=== PATIENT | male | born 1965 | race Hispanic/Latino ===

== ENCOUNTER 2020-11-24 13:02 | Observation (INO) | payer OTHER ==
[~2020-11-24] VITALS: Ht 162.6 cm; Wt 85.5 kg
[2020-11-24 13:04] VITALS: BP 97/58
[2020-11-24] MEDS ORDERED: 0.9%NACL 1000ML 1,000 ML IV SCH (17:15)
[2020-11-24] MEDS ORDERED: LABE200T5 PO (18:05)
[2020-11-24] MEDS ORDERED: CLOP75TA32 PO (18:06)
[2020-11-24] MEDS ORDERED: LORA-192 PO (18:07)
[2020-11-24] MEDS ORDERED: ATOR40TA69 PO (18:08)
[2020-11-24] MEDS ORDERED: ISOS60TA77 PO (18:08)
[2020-11-24] MEDS ORDERED: MONT10TA32 PO (18:09)
[2020-11-24] MEDS ORDERED: GABA300C PO (18:10)
[2020-11-24] MEDS ORDERED: MELA1TAB28 PO (18:10)
[2020-11-24] MEDS ORDERED: ASHW300C PO (18:11)
[2020-11-24 18:39] VITALS: BP 97/60
[2020-11-24 19:46] VITALS: BP 120/69
[2020-11-24 20:54] VITALS: BP 136/71
[2020-11-24 23:49] VITALS: BP 119/77
[2020-11-25] VITALS (12 sets, daily range): BP systolic 110–168; BP diastolic 73–83
[2020-11-25 06:36] LABS: CARBON DIOXIDE 29 mmol/L (21-32); CHLORIDE 108 mmol/L (101-111); CREATINE KINASE, TOTAL 95 U/L (21-232); CREATININE 3.7 mg/dL (0.5-1.5); GLOMERULAR FILTR. RATE CALC 18 mL/min (>60); GLUCOSE,RANDOM 104 mg/dL (70-105); MYOGLOBIN 128 ng/mL (10-92); POTASSIUM 4.7 mmol/L (3.5-5.1); SODIUM SERUM 143 mmol/L (136-145); TROPONIN I < 0.04 ng/mL (0.00-0.06); UREA NITROGEN, BLOOD 48 mg/dL (7-18)
[2020-11-25 06:43] LABS: BASOPHILS % (AUTO) 1.1 % (0.0-5.0); EOSINOPHILS % (AUTO) 5.3 % (0.0-8.0); HEMATOCRIT 28.1 % (42-54); LYMPHOCYTES % (AUTO) 20.5 % (21.0-51.0); MEAN CORPUSCULAR HEMOGLOBIN 29.6 pg (27.0-33.0); MEAN CORPUSCULAR HGB CONC 32.4 g/dL (32.0-36.0); MEAN CORPUSCULAR VOLUME 91.5 fL (79-99); MONOCYTES % (AUTO) 8.2 % (3.0-13.0); NEUTROPHILS % (AUTO) 64.6 % (40.0-77.0); PLATELET COUNT (AUTO) 218 K/uL (130-400); RED BLOOD CELL COUNT(AUTO) 3.07 MIL/uL (4.50-6.20); RED CELL DISTRIBUTION WIDTH 12.6 % (11.0-15.5); WHITE BLOOD COUNT (AUTO) 6.6 K/uL (4.8-10.8)
[2020-11-25 06:48] LABS: INR 1.12 (0.85-1.15); PARTIAL THROMBOPLASTIN TIME 27.5 SEC (26.3-35.5); PROTHROMBIN TIME 12.1 SEC (9.6-11.6)
[2020-11-25] MEDS ORDERED: HEPARIN 10,000 UNIT/10ML (1,000 UNIT/ML) VIAL ONE (15:47)
[2020-11-25] MEDS ORDERED: NITROGLYCERIN 2 MG VIAL IV ONE (15:47)
[2020-11-25] MEDS ORDERED: SODIUM BICARB 50MEQ 50ML VIAL 50 ML ONE (15:47)
[2020-11-25] MEDS ORDERED: IOHEXOL 350 MG/ML 100ML INFUS..BTL IV ONE (15:48)
[2020-11-25] MEDS ORDERED: IOHEXOL-350 50ML VIAL IV ONE (15:48)
[2020-11-25] MEDS ORDERED: LIDOCAINE HCL 400MG/20ML VIAL ONE (15:49)
[2020-11-25] MEDS ORDERED: MEPERIDINE-PF 25 MG/ML SYG ONE (15:49)
[2020-11-25] MEDS ORDERED: MIDAZOLAM HCL 1 MG/ML 2ML VIAL ONE (15:49)
[2020-11-25] MEDS ORDERED: HYDRALAZINE 20MG/ML VIAL ONE (17:08)
[2020-11-25] MEDS ORDERED: 0.9%NACL 1000ML 1,000 ML IV SCH (17:30)
[2020-11-25] MEDS ORDERED: LORAZEPAM 1 MG TABLET PO PRN (17:30)
[2020-11-25] MEDS: LABETALOL HCL 200 MG TABLET PO SCH (20:33)
[2020-11-25] MEDS ORDERED: MELATONIN PO SCH (21:00)
[2020-11-25] MEDS ORDERED: MONTELUKAST SODIUM 10 MG TAB PO SCH (21:00)
[2020-11-25] MEDS ORDERED: PYRIDOXINE HCL PO SCH (21:00)
[2020-11-26] VITALS: BP 139/72
[2020-11-26 04:00] VITALS: BP 187/92
[2020-11-26 05:14] VITALS: BP 159/85
[2020-11-26 05:42] LABS: HEMATOCRIT 30.8 % (42-54); MEAN CORPUSCULAR HEMOGLOBIN 29.6 pg (27.0-33.0); MEAN CORPUSCULAR HGB CONC 32.1 g/dL (32.0-36.0); MEAN CORPUSCULAR VOLUME 92.2 fL (79-99); RED BLOOD CELL COUNT(AUTO) 3.34 MIL/uL (4.50-6.20); RED CELL DISTRIBUTION WIDTH 12.7 % (11.0-15.5)
[2020-11-26 05:57] LABS: CREATININE 3.2 mg/dL (0.5-1.5); POTASSIUM 4.4 mmol/L (3.5-5.1)
[2020-11-26 07:32] VITALS: BP 162/75
[2020-11-26] MEDS: LABETALOL HCL 200 MG TABLET PO SCH (08:07)
[2020-11-26] MEDS ORDERED: CLOPIDOGREL 75MG TAB PO SCH (09:00)
[2020-11-26] MEDS ORDERED: ATORVASTATIN 40 MG TABLET PO SCH (09:00)
[2020-11-26] MEDS ORDERED: ASHWAGANDHA ROOT EXTRACT 300 MG PO SCH (09:00)
[2020-11-26] MEDS ORDERED: ISOSORBIDE MONO 60MG SR TAB PO SCH (09:00)
[2020-11-26] MEDS ORDERED: GABAPENTIN 300 MG CAPSULE PO SCH (09:00)
[2020-11-26] MEDS ORDERED: RANO500T2 PO (11:11)
== END 2020-11-26 11:47 | disposition home or self-care (01) ==
LOC: EDH 13:02 → EDHIP 13:03 → 4BH 20:51
PROVIDERS: ADMIT Internal Medicine Cardiovascular Disease; ATTEND Internal Medicine Cardiovascular Disease
DX: I25.110 Atherosclerotic heart disease of native coronary artery with unstable angina pectoris (principal); N17.9 Acute kidney failure, unspecified; I12.9 Hypertensive chronic kidney disease with stage 1 through stage 4 chronic kidney disease, or unspecified chronic kidney disease; N18.9 Chronic kidney disease, unspecified; E11.22 Type 2 diabetes mellitus with diabetic chronic kidney disease
CPT/HCPCS: 36415 ×2; 80048 ×2; 82550; 82948 ×2; 83874; 84484; 85025; 85027; 85610; 85730; 93005; 93458; 96360; 96361; 99284; C1760; C1894; G0378 ×44; J0360; J1644; J2175; J2250; J3490 ×3; J7030; Q9965; Q9967 ×2; 99156; 99157

== ENCOUNTER → 2020-12-16 | Outpatient (CLI) | payer OTHER ==
[~2020-12-16] MED LIST: ASHW300C PO; ATOR40TA69 PO; CLOP75TA32 PO; GABA300C PO; ISOS60TA77 PO; LABE200T5 PO; LORA-192 PO; MELA1TAB28 PO; MONT10TA32 PO; RANO500T2 PO
== END | disposition home or self-care (01) ==
LOC: SHCH 10:41
PROVIDERS: ATTEND Internal Medicine Cardiovascular Disease
DX: I70.293 Other atherosclerosis of native arteries of extremities, bilateral legs (principal)
CPT/HCPCS: 93925

== ENCOUNTER 2021-04-06 06:22 | Inpatient (IN) | payer OTHER ==
[2021-04-02 10:30] LABS: BASOPHILS % (AUTO) 0.9 % (0.0-5.0); EOSINOPHILS % (AUTO) 5.1 % (0.0-8.0); HEMATOCRIT 42.6 % (42-54); LYMPHOCYTES % (AUTO) 14.6 % (21.0-51.0); MEAN CORPUSCULAR HEMOGLOBIN 30.3 pg (27.0-33.0); MEAN CORPUSCULAR VOLUME 97.7 fL (79-99); MONOCYTES % (AUTO) 8.3 % (3.0-13.0); NEUTROPHILS % (AUTO) 70.6 % (40.0-77.0); PLATELET COUNT (AUTO) 269 K/uL (130-400); RED BLOOD CELL COUNT(AUTO) 4.36 MIL/uL (4.50-6.20); RED CELL DISTRIBUTION WIDTH 16.2 % (11.0-15.5); WHITE BLOOD COUNT (AUTO) 6.5 K/uL (4.8-10.8)
[2021-04-02 10:38] LABS: APPEARANCE,URINE Cloudy (CLEAR); BILIRUBIN,URINE Negative (NEGATIVE); COLOR,URINE Yellow (YELLOW); GLUCOSE, URINE (UA) 500 mg/dL (NEGATIVE); KETONES,URINE Trace mg/dL (NEGATIVE); LEUKOCYTE ESTERASE ,URINE Trace (NEGATIVE); NITRATE,URINE Negative (NEGATIVE); OCCULT BLOOD,URINE Small (NEGATIVE); PROTEIN,URINE >=1000 mg/dL (NEGATIVE)
[2021-04-02 10:41] LABS: CREATININE 3.9 mg/dL (0.5-1.5); INR 1.09 (0.85-1.15); POTASSIUM 4.4 mmol/L (3.5-5.1); PROTHROMBIN TIME 11.8 SEC (9.6-11.6)
[2021-04-02 10:43] LABS: PARTIAL THROMBOPLASTIN TIME 29.2 SEC (26.3-35.5)
[2021-04-02 10:56] LABS: BACTERIA,URINE Rare /HPF (None Seen); RBC,URINE 0-1 /HPF (0-1); SQUAMOUS EPITHELIAL CELL,UR Rare /HPF (0-2); WBC,URINE 0-1 /HPF (0-1)
[2021-04-03 13:11] VITALS: BP 180/79
[2021-04-06] VITALS (31 sets, daily range): BP systolic 131–188; BP diastolic 69–97
[~2021-04-06] VITALS: Ht 162.6 cm; Wt 80.6 kg
[~2021-04-06 06:22] MED LIST changes: +0.9% NACL 500ML IV.SOLN 500 ML IV SCH; +CITA-107 PO; +INSU100I35 SQ; +MONT-39 PO; -MONT10TA32 PO
[2021-04-06] MEDS ORDERED: 0.9%NACL 1000ML 1,000 ML IV ONE (06:36)
[2021-04-06] MEDS ORDERED: SODIUM BICARB 50MEQ 50ML VIAL 50 ML ONE (07:56)
[2021-04-06] MEDS ORDERED: LIDOCAINE HCL 400MG/20ML VIAL ONE (07:56)
[2021-04-06] MEDS ORDERED: IOHEXOL 350 MG/ML 100ML INFUS..BTL IV ONE (07:56)
[2021-04-06] MEDS ORDERED: HEPARIN 10,000 UNIT/10ML (1,000 UNIT/ML) VIAL ONE (07:56)
[2021-04-06] MEDS ORDERED: NITROGLYCERIN 50MG VIAL IV ONE (07:56)
[2021-04-06] MEDS ORDERED: IOHEXOL-350 50ML VIAL IV ONE (07:56)
[2021-04-06] MEDS ORDERED: BIVALIRUDIN 250 MG/VIAL IV ONE (07:56)
[2021-04-06] MEDS ORDERED: MEPERIDINE-PF 25 MG/ML SYG ONE ×2 (08:15→08:41)
[2021-04-06] MEDS ORDERED: MIDAZOLAM HCL 1 MG/ML 2ML VIAL ONE ×2 (08:15→08:42)
[2021-04-06] MEDS ORDERED: MELA3TAB41 PO (08:51)
[2021-04-06] MEDS ORDERED: LORA-192 PO (08:52)
[2021-04-06] MEDS ORDERED: CITALOPRAM 20 MG TABLET PO SCH (14:00)
[2021-04-06 14:41] LABS: MEAN CORPUSCULAR HEMOGLOBIN 30.1 pg (27.0-33.0); MEAN CORPUSCULAR HGB CONC 30.5 g/dL (32.0-36.0); MEAN CORPUSCULAR VOLUME 98.4 fL (79-99); RED BLOOD CELL COUNT(AUTO) 3.86 MIL/uL (4.50-6.20); RED CELL DISTRIBUTION WIDTH 15.9 % (11.0-15.5)
[2021-04-06 14:53] LABS: INR 1.1 (0.85-1.15); PROTHROMBIN TIME 11.9 SEC (9.6-11.6)
[2021-04-06 14:54] LABS: PARTIAL THROMBOPLASTIN TIME 30.4 SEC (26.3-35.5)
[2021-04-06 14:56] LABS: ALBUMIN 2.8 g/dL (3.5-5.0); BILIRUBIN,TOTAL 0.4 mg/dL (0.2-1.0); CREATININE 5.6 mg/dL (0.5-1.5); POTASSIUM 4.7 mmol/L (3.5-5.1); TOTAL PROTEIN, SERUM 5.7 g/dL (6.0-8.3)
[2021-04-06 15:04] LABS: ABG BASE EXCESS -4.8 mmol/L (-2.0-3.0); ABG HCO3 19.5 mmol/L (21.0-28.0); ABG OXYGEN SATURATION 98.1 % (95.0-99.0); ABG PCO2 34 mmHg (35-48)
[2021-04-06] MEDS ORDERED: HEPARIN 5,000 UNIT VIAL ONE (18:15)
[2021-04-06] MEDS: INSULIN HUMULIN 70/30 100 UNIT/ML 3ML SQ SCH (19:37)
[2021-04-06] MEDS: RANOLAZINE 500 MG TAB.SR.12H PO SCH (20:43)
[2021-04-06] MEDS: MONTELUKAST SODIUM 10 MG TAB PO SCH (20:43)
[2021-04-06] MEDS: LABETALOL HCL 200 MG TABLET PO SCH (20:44)
[2021-04-07] VITALS (30 sets, daily range): BP systolic 59–234; BP diastolic 44–148
[2021-04-07 04:03] LABS: BASOPHILS % (AUTO) 0.7 % (0.0-5.0); EOSINOPHILS % (AUTO) 4.1 % (0.0-8.0); HEMATOCRIT 38.5 % (42-54); LYMPHOCYTES % (AUTO) 16.7 % (21.0-51.0); MEAN CORPUSCULAR HEMOGLOBIN 29.9 pg (27.0-33.0); MEAN CORPUSCULAR HGB CONC 31.4 g/dL (32.0-36.0); MEAN CORPUSCULAR VOLUME 95.1 fL (79-99); MONOCYTES % (AUTO) 9.5 % (3.0-13.0); NEUTROPHILS % (AUTO) 68.7 % (40.0-77.0); PLATELET COUNT (AUTO) 183 K/uL (130-400); RED BLOOD CELL COUNT(AUTO) 4.05 MIL/uL (4.50-6.20); RED CELL DISTRIBUTION WIDTH 15.4 % (11.0-15.5); WHITE BLOOD COUNT (AUTO) 6.1 K/uL (4.8-10.8)
[2021-04-07 04:12] LABS: INR 1.08 (0.85-1.15); PROTHROMBIN TIME 11.7 SEC (9.6-11.6)
[2021-04-07 04:13] LABS: PARTIAL THROMBOPLASTIN TIME 30.8 SEC (26.3-35.5)
[2021-04-07 04:15] LABS: CREATININE 4.4 mg/dL (0.5-1.5); PHOSPHORUS 3.8 mg/dL (2.5-4.9); POTASSIUM 3.8 mmol/L (3.5-5.1)
[2021-04-07] MEDS: LABETALOL HCL 200 MG TABLET PO SCH (05:18)
[2021-04-07] MEDS: RANOLAZINE 500 MG TAB.SR.12H PO SCH (09:00)
[2021-04-07] MEDS: ATORVASTATIN 40 MG TABLET PO SCH (09:00)
[2021-04-07] MEDS: INSULIN HUMULIN 70/30 100 UNIT/ML 3ML SQ SCH (09:00)
[2021-04-07] MEDS: GABAPENTIN 300 MG CAPSULE PO SCH (09:00)
[2021-04-07] MEDS ORDERED: NOREPINEPHRINE BITARTRATE 8 MG in DEXTROSE 5%-WATER 250 ML IV PRN (09:30)
[2021-04-07] MEDS ORDERED: EPINEPHRINE PF 1MG AMP 10 MG in 0.9% NACL 250ML 240 ML IV PRN (09:30)
[2021-04-07] MEDS ORDERED: AMINOCAPROIC ACID 5,000MG VIAL 15,000 MG in 0.9% NACL 500ML IV.SOLN 420 ML IV PRN (09:30)
[2021-04-07] MEDS ORDERED: NITROGLYCERIN 50MG/D5W 250ML 1 BOT ONE (10:31)
[2021-04-07] MEDS ORDERED: LIDOCAINE PF 100MG/5ML (2%) SYRINGE 5ML ONE (10:35)
[2021-04-07] MEDS ORDERED: AMINOCAPROIC ACID 5,000MG VIAL ONE (10:35)
[2021-04-07] MEDS ORDERED: NOREPINEPHRINE BITARTRATE 1 MG/1 ML ML IV ONE (10:35)
[2021-04-07] MEDS ORDERED: EPINEPHRINE PF 1MG AMP ONE (10:35)
[2021-04-07] MEDS ORDERED: PROTAMINE SULFATE 10 MG/ML 25ML VIAL IV ONE (10:35)
[2021-04-07] MEDS ORDERED: PROPOFOL 10 MG/ML 20ML VIAL IV ONE (10:35)
[2021-04-07] MEDS ORDERED: FENTANYL CITRATE PF 50 MCG/1 ML 20ML VIAL IJ ONE (10:35)
[2021-04-07] MEDS ORDERED: SODIUM BICARB 50MEQ 50ML VIAL 100 ML ONE (10:35)
[2021-04-07] MEDS ORDERED: HEPARIN 10,000 UNIT/10ML (1,000 UNIT/ML) VIAL ONE (10:35)
[2021-04-07] MEDS ORDERED: ESMOLOL HCL 10 MG/ML 10 ML VIAL ONE (10:35)
[2021-04-07] MEDS ORDERED: ROCURONIUM 10MG/1ML SYR 10 MG/ML ML ONE (10:36)
[2021-04-07] MEDS ORDERED: MIDAZOLAM HCL 1 MG/ML 2ML VIAL ONE (10:36)
[2021-04-07] MEDS ORDERED: KETAMINE 50MG/ML SYRINGE 50 MG/ML DISP.SYRIN IV ONE ×2 (10:38→14:36)
[2021-04-07] MEDS ORDERED: 0.9%NACL 1000ML 1,000 ML IV ONE (10:42)
[2021-04-07] MEDS ORDERED: CEFUROXIME SODIUM 1.5 GM VIAL ONE (10:51)
[2021-04-07] MEDS ORDERED: CEFAZOLIN SODIUM 1 GM VIAL ONE ×2 (12:09→12:17)
[2021-04-07] MEDS ORDERED: PAPAVERINE HCL 30 MG/ML 2ML VIAL ONE (12:17)
[2021-04-07] MEDS ORDERED: OCTYL 2-CYANOACRYLATE 1 EACH TP ONE (12:17)
[2021-04-07] MEDS ORDERED: AMIODARONE 150MG VIAL ONE (13:19)
[2021-04-07 14:38] LABS: ABG BASE EXCESS -5.9 mmol/L (-2.0-3.0); ABG HCO3 18.1 mmol/L (21.0-28.0); ABG OXYGEN SATURATION 99.6 % (95.0-99.0); ABG PCO2 31 mmHg (35-48)
[2021-04-07] MEDS ORDERED: 0.9% NACL 500ML IV.SOLN 500 ML IV SCH (15:00)
[2021-04-07] MEDS ORDERED: 0.9%NACL 1000ML 1,000 ML IV SCH (15:00)
[2021-04-07] MEDS ORDERED: MORPHINE 2 MG SYG IV PRN ×2 (15:00)
[2021-04-07] MEDS ORDERED: ACETAMINOPHEN 650 MG SUPPOSITORY RC PRN (15:00)
[2021-04-07] MEDS ORDERED: INSULIN REGULAR, HUMAN 3ML 100 UNIT in 0.9%NACL 100ML 99 ML IV SCH ×2 (15:00)
[2021-04-07] MEDS ORDERED: ALBUMIN (HUMAN) 5% 250 ML IV PRN (15:00)
[2021-04-07] MEDS ORDERED: TRAMADOL HCL 50 MG TABLET PO PRN (15:00)
[2021-04-07] MEDS ORDERED: ASPIRIN 81MG CHEW TAB PO ONE (15:00)
[2021-04-07] MEDS ORDERED: AMINOCAPROIC ACID 5,000MG VIAL 15,000 MG in 0.9% NACL 250ML 250 ML IV SCH (15:00)
[2021-04-07] MEDS ORDERED: DEXTROSE 50%-WATER 50 ML DISP.SYRIN IV PRN (15:00)
[2021-04-07] MEDS ORDERED: ONDANSETRON 4MG INJ IV PRN (15:00)
[2021-04-07] MEDS ORDERED: NOREPINEPHRIN 4MG/NS 250ML 250 ML IV PRN (15:00)
[2021-04-07] MEDS ORDERED: 0.9%NACL 10ML VIAL IVP PRN (15:00)
[2021-04-07] MEDS ORDERED: POTASSIUM PHOS 15 mMOL+NS250ML 250 ML IV PRN (15:00)
[2021-04-07] MEDS ORDERED: GLUCAGON 1MG KIT 1 MG ML IM PRN (15:00)
[2021-04-07] MEDS ORDERED: MAGNESIUM 2GM PREMIX 50ML 50 ML IV PRN (15:00)
[2021-04-07] MEDS ORDERED: POTASSIUM CHLORIDE 20MEQ/100ML 100 ML IV PRN (15:00)
[2021-04-07] MEDS ORDERED: EPINEPHRINE PF 1MG AMP 10 MG in DEXTROSE 5%-WATER 250 ML IV PRN (15:00)
[2021-04-07] MEDS ORDERED: NITROGLYCERIN 50MG/D5W 250ML 250 BOT IV SCH (15:00)
[2021-04-07] MEDS ORDERED: PROPOFOL 1000 MG/100 ML 100 ML IV PRN (15:00)
[2021-04-07 15:34] LABS: HEMATOCRIT 34.4 % (42-54); MEAN CORPUSCULAR HGB CONC 32.8 g/dL (32.0-36.0); MEAN CORPUSCULAR VOLUME 94.5 fL (79-99); RED BLOOD CELL COUNT(AUTO) 3.64 MIL/uL (4.50-6.20); RED CELL DISTRIBUTION WIDTH 15.4 % (11.0-15.5); WHITE BLOOD COUNT (AUTO) 15.5 K/uL (4.8-10.8)
[2021-04-07 15:47] LABS: INR 1.35 (0.85-1.15); PROTHROMBIN TIME 14.3 SEC (9.6-11.6)
[2021-04-07 15:49] LABS: CREATININE 4.8 mg/dL (0.5-1.5); MAGNESIUM 1.7 mg/dL (1.80-2.40); PARTIAL THROMBOPLASTIN TIME 29.6 SEC (26.3-35.5); PHOSPHORUS 4.9 mg/dL (2.5-4.9); POTASSIUM 5.7 mmol/L (3.5-5.1)
[2021-04-07 15:51] LABS: ABG BASE EXCESS -1.7 mmol/L (-2.0-3.0); ABG HCO3 22.5 mmol/L (21.0-28.0); ABG OXYGEN SATURATION 98.9 % (95.0-99.0); ABG PCO2 36 mmHg (35-48)
[2021-04-07] MEDS: SODIUM BICARB 50MEQ 50ML VIAL IV PRN ×2 (15:57→17:10)
[2021-04-07 17:07] LABS: ABG BASE EXCESS -3.3 mmol/L (-2.0-3.0); ABG HCO3 19.2 mmol/L (21.0-28.0); ABG OXYGEN SATURATION 98.9 % (95.0-99.0); ABG PCO2 27 mmHg (35-48)
[2021-04-07] MEDS ORDERED: ASPIRIN 81MG CHEW TAB ONE (17:24)
[2021-04-07] MEDS: FAMOTIDINE 20MG VIAL IV SCH (17:26)
[2021-04-07 18:04] LABS: ABG BASE EXCESS 1.9 mmol/L (-2.0-3.0); ABG HCO3 23.6 mmol/L (21.0-28.0); ABG OXYGEN SATURATION 98.6 % (95.0-99.0); ABG PCO2 28 mmHg (35-48)
[2021-04-07] MEDS ORDERED: CALCIUM GLUC 1GM/10ML VIAL ONE (18:09)
[2021-04-07] MEDS: CALCIUM GLUC 1GM 1 GM in 0.9%NACL 50ML 50 ML IV PRN ×3 (18:11→22:24)
[2021-04-07] MEDS ORDERED: NOREPINEPHRIN 8MG/250ML NS PMX 250 ML IV ONE (19:03)
[2021-04-07 19:06] LABS: ABG BASE EXCESS 1.5 mmol/L (-2.0-3.0); ABG HCO3 23.4 mmol/L (21.0-28.0); ABG OXYGEN SATURATION 98.2 % (95.0-99.0); ABG PCO2 28 mmHg (35-48)
[2021-04-07] MEDS ORDERED: ALBUMIN (HUMAN) 5% 250 ML IV ONE (20:13)
[2021-04-07 20:28] LABS: ABG BASE EXCESS -1.6 mmol/L (-2.0-3.0); ABG HCO3 24.4 mmol/L (21.0-28.0); ABG OXYGEN SATURATION 97.6 % (95.0-99.0); ABG PCO2 47 mmHg (35-48)
[2021-04-07] MEDS: CEFAZOLIN SODIUM 1 GM VIAL IV SCH (20:58)
[2021-04-07] MEDS: MONTELUKAST SODIUM 10 MG TAB PO SCH (21:00)
[2021-04-07] MEDS: TRAMADOL HCL 50 MG TABLET PO PRN (21:46)
[2021-04-07 22:22] LABS: ABG BASE EXCESS 0.6 mmol/L (-2.0-3.0); ABG HCO3 26.8 mmol/L (21.0-28.0); ABG OXYGEN SATURATION 97.9 % (95.0-99.0); ABG PCO2 52 mmHg (35-48)
[2021-04-08] VITALS (35 sets, daily range): BP systolic 78–253; BP diastolic 42–252
[2021-04-08] MEDS: TRAMADOL HCL 50 MG TABLET PO PRN (03:16)
[2021-04-08] MEDS: CEFAZOLIN SODIUM 1 GM VIAL IV SCH ×2 (03:46→12:00)
[2021-04-08 04:01] LABS: ABG BASE EXCESS -4.5 mmol/L (-2.0-3.0); ABG HCO3 22.2 mmol/L (21.0-28.0); ABG PCO2 46 mmHg (35-48)
[2021-04-08 04:25] LABS: HEMATOCRIT 26.7 % (42-54); MEAN CORPUSCULAR HEMOGLOBIN 30.1 pg (27.0-33.0); MEAN CORPUSCULAR HGB CONC 31.1 g/dL (32.0-36.0); MEAN CORPUSCULAR VOLUME 96.7 fL (79-99); RED BLOOD CELL COUNT(AUTO) 2.76 MIL/uL (4.50-6.20); RED CELL DISTRIBUTION WIDTH 15.6 % (11.0-15.5)
[2021-04-08] MEDS: SODIUM BICARB 50MEQ 50ML VIAL IV PRN (04:27)
[2021-04-08 04:42] LABS: INR 1.22 (0.85-1.15); PROTHROMBIN TIME 13.1 SEC (9.6-11.6)
[2021-04-08 04:43] LABS: PARTIAL THROMBOPLASTIN TIME 27.9 SEC (26.3-35.5)
[2021-04-08 04:57] LABS: CREATININE 6.5 mg/dL (0.5-1.5); MAGNESIUM 1.8 mg/dL (1.80-2.40); PHOSPHORUS 7.3 mg/dL (2.5-4.9); POTASSIUM 5.2 mmol/L (3.5-5.1)
[2021-04-08 07:16] LABS: HEPATITIS Bs ANTIGEN SCREEN P Negative (Negative)
[2021-04-08] MEDS: GABAPENTIN 300 MG CAPSULE PO SCH (08:56)
[2021-04-08] MEDS: ASPIRIN 81 MG EC TAB PO SCH (08:56)
[2021-04-08] MEDS: FAMOTIDINE 20MG VIAL IV SCH (08:56)
[2021-04-08] MEDS: METOPROLOL TARTRATE 25 MG TAB PO SCH ×2 (08:56→20:42)
[2021-04-08] MEDS: ATORVASTATIN 40 MG TABLET PO SCH (09:00)
[2021-04-08] MEDS ORDERED: HEPARIN 5,000 UNIT VIAL ONE (13:40)
[2021-04-08] MEDS ORDERED: IOHEXOL-350 75 ML VIAL IV ONE (17:46)
[2021-04-08] MEDS: MONTELUKAST SODIUM 10 MG TAB PO SCH (20:42)
[2021-04-09] VITALS (40 sets, daily range): BP systolic 93–197; BP diastolic 48–192
[2021-04-09 04:17] LABS: HEMATOCRIT 23.7 % (42-54); MEAN CORPUSCULAR HGB CONC 31.6 g/dL (32.0-36.0); MEAN CORPUSCULAR VOLUME 97.9 fL (79-99); RED BLOOD CELL COUNT(AUTO) 2.42 MIL/uL (4.50-6.20); RED CELL DISTRIBUTION WIDTH 15.4 % (11.0-15.5); WHITE BLOOD COUNT (AUTO) 9.3 K/uL (4.8-10.8)
[2021-04-09 04:28] LABS: POTASSIUM 5.3 mmol/L (3.5-5.1)
[2021-04-09] MEDS: METOPROLOL TARTRATE 25 MG TAB PO SCH ×2 (07:54→22:40)
[2021-04-09] MEDS: ATORVASTATIN 40 MG TABLET PO SCH (08:15)
[2021-04-09] MEDS: GABAPENTIN 300 MG CAPSULE PO SCH (08:15)
[2021-04-09] MEDS: ASPIRIN 81 MG EC TAB PO SCH (08:15)
[2021-04-09] MEDS: FAMOTIDINE 20MG VIAL IV SCH (08:15)
[2021-04-09] MEDS ORDERED: METOPROLOL TARTRATE 25 MG TAB PO SCH ×2 (09:00)
[2021-04-09] MEDS: KAYEXALATE 15GM/60ML PO SCH (09:44)
[2021-04-09] MEDS: INSULIN HUMULIN R 100 UNIT/ML 3ML SQ SCH ×3 (11:32→22:41)
[2021-04-09] MEDS: MONTELUKAST SODIUM 10 MG TAB PO SCH (22:40)
[2021-04-10] VITALS (40 sets, daily range): BP systolic 73–182; BP diastolic 52–99
[2021-04-10 04:13] LABS: HEMATOCRIT 25.4 % (42-54); MEAN CORPUSCULAR HEMOGLOBIN 29.6 pg (27.0-33.0); MEAN CORPUSCULAR HGB CONC 29.5 g/dL (32.0-36.0); MEAN CORPUSCULAR VOLUME 100.4 fL (79-99); PLATELET COUNT (AUTO) 170 K/uL (130-400); RED BLOOD CELL COUNT(AUTO) 2.53 MIL/uL (4.50-6.20); RED CELL DISTRIBUTION WIDTH 15.4 % (11.0-15.5); WHITE BLOOD COUNT (AUTO) 8.6 K/uL (4.8-10.8)
[2021-04-10 04:29] LABS: CREATININE 7.7 mg/dL (0.5-1.5)
[2021-04-10] MEDS: INSULIN HUMULIN R 100 UNIT/ML 3ML SQ SCH ×4 (07:05→20:00)
[2021-04-10] MEDS: ACETAMINOPHEN 325 MG TAB PO PRN ×2 (07:06→19:50)
[2021-04-10] MEDS: KAYEXALATE 15GM/60ML PO SCH (07:08)
[2021-04-10] MEDS: FAMOTIDINE 20MG VIAL IV SCH (08:07)
[2021-04-10] MEDS: ATORVASTATIN 40 MG TABLET PO SCH (08:07)
[2021-04-10] MEDS: ASPIRIN 81 MG EC TAB PO SCH (08:07)
[2021-04-10] MEDS: HEPARIN 5,000 UNIT VIAL SQ SCH ×2 (08:09→20:02)
[2021-04-10] MEDS: METOPROLOL TARTRATE 25 MG TAB PO SCH ×2 (08:15→20:01)
[2021-04-10] MEDS: PHARMACY COMMUNICATION MISC SCH ×2 (08:30→11:14)
[2021-04-10] MEDS: MELATONIN 10 MG MISC SCH (20:01)
[2021-04-10] MEDS: MONTELUKAST SODIUM 10 MG TAB PO SCH (20:01)
[2021-04-10] MEDS: GUMMY MISC SCH (20:01)
[2021-04-11] VITALS (10 sets, daily range): BP systolic 124–168; BP diastolic 48–88
[2021-04-11 04:08] LABS: HEMATOCRIT 25.5 % (42-54); MEAN CORPUSCULAR HEMOGLOBIN 29.2 pg (27.0-33.0); MEAN CORPUSCULAR HGB CONC 31.8 g/dL (32.0-36.0); MEAN CORPUSCULAR VOLUME 92.1 fL (79-99); RED BLOOD CELL COUNT(AUTO) 2.77 MIL/uL (4.50-6.20); RED CELL DISTRIBUTION WIDTH 15.7 % (11.0-15.5); WHITE BLOOD COUNT (AUTO) 6.9 K/uL (4.8-10.8)
[2021-04-11 04:18] LABS: CREATININE 5.1 mg/dL (0.5-1.5); POTASSIUM 3.2 mmol/L (3.5-5.1)
[2021-04-11] MEDS: ACETAMINOPHEN 325 MG TAB PO PRN ×3 (04:30→23:19)
[2021-04-11] MEDS: INSULIN HUMULIN R 100 UNIT/ML 3ML SQ SCH ×4 (06:20→21:20)
[2021-04-11] MEDS: ASPIRIN 81 MG EC TAB PO SCH (08:14)
[2021-04-11] MEDS: METOPROLOL TARTRATE 25 MG TAB PO SCH ×2 (08:14→21:16)
[2021-04-11] MEDS: ATORVASTATIN 40 MG TABLET PO SCH (08:14)
[2021-04-11] MEDS: FAMOTIDINE 20MG TAB PO SCH (08:14)
[2021-04-11] MEDS: HEPARIN 5,000 UNIT VIAL SQ SCH ×2 (08:15→21:16)
[2021-04-11] MEDS: KAYEXALATE 15GM/60ML PO SCH (09:30)
[2021-04-11] MEDS ORDERED: EPOETIN ALFA-EPBX (ESRD) 10,000 UNIT/ML VIAL SQ SCH (17:00)
[2021-04-11] MEDS: MONTELUKAST SODIUM 10 MG TAB PO SCH (21:16)
[2021-04-11] MEDS: MELATONIN 10 MG MISC SCH (21:17)
[2021-04-11] MEDS: GUMMY MISC SCH (21:17)
[2021-04-12] VITALS (9 sets, daily range): BP systolic 119–142; BP diastolic 61–81
[2021-04-12 04:23] LABS: HEMATOCRIT 26.1 % (42-54); MEAN CORPUSCULAR HEMOGLOBIN 29.4 pg (27.0-33.0); MEAN CORPUSCULAR HGB CONC 31.8 g/dL (32.0-36.0); MEAN CORPUSCULAR VOLUME 92.6 fL (79-99); PLATELET COUNT (AUTO) 236 K/uL (130-400); RED BLOOD CELL COUNT(AUTO) 2.82 MIL/uL (4.50-6.20); RED CELL DISTRIBUTION WIDTH 15.6 % (11.0-15.5); WHITE BLOOD COUNT (AUTO) 6.5 K/uL (4.8-10.8)
[2021-04-12 04:42] LABS: CREATININE 5.4 mg/dL (0.5-1.5); POTASSIUM 3.2 mmol/L (3.5-5.1)
[2021-04-12 05:46] LABS: EOSINOPHILS % (MANUAL) 2 % (1-6); LYMPHOCYTES % (MANUAL) 19 % (22-44); MAN.DIFF COMMENT-IMPRESSION MANUAL DIFFERENTIAL; MONOCYTES % (MANUAL) 9 % (2-9); PLATELET MORPHOLOGY COMMENT ADEQUATE; SEGMENTED NEUTROPHILS % 70 % (40-70)
[2021-04-12] MEDS: INSULIN HUMULIN R 100 UNIT/ML 3ML SQ SCH ×4 (06:24→20:13)
[2021-04-12] MEDS: FAMOTIDINE 20MG TAB PO SCH (08:19)
[2021-04-12] MEDS: METOPROLOL TARTRATE 25 MG TAB PO SCH ×2 (08:19→20:15)
[2021-04-12] MEDS: ATORVASTATIN 40 MG TABLET PO SCH (08:19)
[2021-04-12] MEDS: ASPIRIN 81 MG EC TAB PO SCH (08:19)
[2021-04-12] MEDS: HEPARIN 5,000 UNIT VIAL SQ SCH ×2 (08:32→20:17)
[2021-04-12] MEDS: KAYEXALATE 15GM/60ML PO SCH (08:32)
[2021-04-12] MEDS: ACETAMINOPHEN 325 MG TAB PO PRN ×2 (14:40→20:16)
[2021-04-12] MEDS: MONTELUKAST SODIUM 10 MG TAB PO SCH (20:15)
[2021-04-12] MEDS: MELATONIN 10 MG MISC SCH (20:18)
[2021-04-12] MEDS: GUMMY MISC SCH (20:18)
[2021-04-13] VITALS (17 sets, daily range): BP systolic 133–168; BP diastolic 51–92
[2021-04-13 04:10] LABS: HEMATOCRIT 27.3 % (42-54); MEAN CORPUSCULAR HEMOGLOBIN 29.1 pg (27.0-33.0); MEAN CORPUSCULAR HGB CONC 31.1 g/dL (32.0-36.0); MEAN CORPUSCULAR VOLUME 93.5 fL (79-99); PLATELET COUNT (AUTO) 265 K/uL (130-400); RED BLOOD CELL COUNT(AUTO) 2.92 MIL/uL (4.50-6.20); RED CELL DISTRIBUTION WIDTH 15.5 % (11.0-15.5); WHITE BLOOD COUNT (AUTO) 6.6 K/uL (4.8-10.8)
[2021-04-13 04:30] LABS: CREATININE 5.7 mg/dL (0.5-1.5); POTASSIUM 3.5 mmol/L (3.5-5.1)
[2021-04-13 05:08] LABS: EOSINOPHILS % (MANUAL) 7 % (1-6); LYMPHOCYTES % (MANUAL) 16 % (22-44); MAN.DIFF COMMENT-IMPRESSION MANUAL DIFFERENTIAL; MONOCYTES % (MANUAL) 6 % (2-9); SEGMENTED NEUTROPHILS % 71 % (40-70)
[2021-04-13 05:09] LABS: PLATELET MORPHOLOGY COMMENT ADEQUATE
[2021-04-13] MEDS: ACETAMINOPHEN 325 MG TAB PO PRN (05:54)
[2021-04-13] MEDS: INSULIN HUMULIN R 100 UNIT/ML 3ML SQ SCH ×2 (07:02→11:30)
[2021-04-13] MEDS: KAYEXALATE 15GM/60ML PO SCH (07:06)
[2021-04-13] MEDS: METOPROLOL TARTRATE 25 MG TAB PO SCH (07:45)
[2021-04-13] MEDS: FAMOTIDINE 20MG TAB PO SCH (07:45)
[2021-04-13] MEDS: ASPIRIN 81 MG EC TAB PO SCH (07:45)
[2021-04-13] MEDS: ATORVASTATIN 40 MG TABLET PO SCH (07:45)
[2021-04-13] MEDS: HEPARIN 5,000 UNIT VIAL SQ SCH (07:47)
[2021-04-13] MEDS ORDERED: EPOETIN ALFA-EPBX (ESRD) 10,000 UNIT/ML VIAL SQ SCH (09:00)
[2021-04-13] MEDS ORDERED: METO25 PO (11:10)
[2021-04-13] MEDS ORDERED: AEC81 PO (11:10)
== END 2021-04-13 14:45 | disposition home or self-care (01) | DRG 233 ==
LOC: DAH 06:22 → DAHIP 06:23 → DAH 06:23 → 4BH 16:06 → 2CV 04-07 11:43 → 2CH 04-08 05:23 → 2DH 04-10 05:44
PROVIDERS: ADMIT Thoracic Surgery (Cardiothoracic Vascular Surgery); ATTEND Thoracic Surgery (Cardiothoracic Vascular Surgery)
PROC: 4A023N7 Measurement of Cardiac Sampling and Pressure, Left Heart, Percutaneous Approach (ICD-10-PCS; 2021-04-06)
PROC: B2111ZZ Fluoroscopy of Multiple Coronary Arteries using Low Osmolar Contrast (ICD-10-PCS; 2021-04-06)
PROC: B2151ZZ Fluoroscopy of Left Heart using Low Osmolar Contrast (ICD-10-PCS; 2021-04-06)
PROC: 5A1D70Z Performance of Urinary Filtration, Intermittent, Less than 6 Hours Per Day (ICD-10-PCS; 2021-04-06)
PROC: 06BQ4ZZ Excision of Left Saphenous Vein, Percutaneous Endoscopic Approach (ICD-10-PCS; 2021-04-07)
PROC: 02100Z9 Bypass Coronary Artery, One Artery from Left Internal Mammary, Open Approach (ICD-10-PCS; principal; 2021-04-07 11:00)
PROC: 021209W Bypass Coronary Artery, Three Arteries from Aorta with Autologous Venous Tissue, Open Approach (ICD-10-PCS; 2021-04-07 11:00)
PROC: 5A1D70Z Performance of Urinary Filtration, Intermittent, Less than 6 Hours Per Day (ICD-10-PCS; 2021-04-08)
PROC: 30233N1 Transfusion of Nonautologous Red Blood Cells into Peripheral Vein, Percutaneous Approach (ICD-10-PCS; 2021-04-10)
PROC: 5A1D70Z Performance of Urinary Filtration, Intermittent, Less than 6 Hours Per Day (ICD-10-PCS; 2021-04-10)
PROC: 5A1D70Z Performance of Urinary Filtration, Intermittent, Less than 6 Hours Per Day (ICD-10-PCS; 2021-04-13)
DX: I25.119 Atherosclerotic heart disease of native coronary artery with unspecified angina pectoris (principal); N18.6 End stage renal disease; I50.33 Acute on chronic diastolic (congestive) heart failure; G93.41 Metabolic encephalopathy; I31.9 Disease of pericardium, unspecified; I13.2 Hypertensive heart and chronic kidney disease with heart failure and with stage 5 chronic kidney disease, or end stage renal disease; I69.351 Hemiplegia and hemiparesis following cerebral infarction affecting right dominant side; E11.22 Type 2 diabetes mellitus with diabetic chronic kidney disease; E11.51 Type 2 diabetes mellitus with diabetic peripheral angiopathy without gangrene; E78.5 Hyperlipidemia, unspecified; Z20.822 Contact with and (suspected) exposure to COVID-19; E78.00 Pure hypercholesterolemia, unspecified; E11.40 Type 2 diabetes mellitus with diabetic neuropathy, unspecified; D63.8 Anemia in other chronic diseases classified elsewhere; F60.0 Paranoid personality disorder; E87.5 Hyperkalemia; Z99.2 Dependence on renal dialysis; Z79.899 Other long term (current) drug therapy; Z88.8 Allergy status to other drugs, medicaments and biological substances
CPT/HCPCS: 36415; 36600; 70450; 70496; 70498; 71045; 80048; 80053; 80061; 81001; 82435; 82803; 82947; 82948; 83036; 83605; 83735; 83880; 84100; 84132; 84295; 85018; 85025; 85027; 85347; 85610; 85730; 86704; 86706; 86850; 86900; 86901; 86923; 87340; 87635; 90935; 92610; 93005; 93458; 93880; 94002; 94010; 94150; 97039; 99156; 99157; A4606; A7048; C1760; C1894; G0378; J0171; J0282; J0583; J0610; J0690; J0697; J1644; J1815; J2001; J2175; J2250; J2405; J2440; J2704; J2720; J3010; J3490; J7030; J7040; P9016; P9045; Q9967

== ENCOUNTER 2021-04-16 17:01 | Emergency (ER) | payer OTHER ==
[~2021-04-16] VITALS: Ht 162.6 cm; Wt 81.6 kg
[~2021-04-16 17:01] MED LIST changes: -0.9% NACL 500ML IV.SOLN 500 ML IV SCH; +AEC81 PO; -ASHW300C PO; -CLOP75TA32 PO; -ISOS60TA77 PO; -LABE200T5 PO; -MELA1TAB28 PO; +MELA3TAB41 PO; +METO25 PO; -RANO500T2 PO
[2021-04-16 17:53] LABS: BASOPHILS % (AUTO) 0.5 % (0.0-5.0); EOSINOPHILS % (AUTO) 5.1 % (0.0-8.0); HEMATOCRIT 26.6 % (42-54); LYMPHOCYTES % (AUTO) 14.2 % (21.0-51.0); MEAN CORPUSCULAR HEMOGLOBIN 29.5 pg (27.0-33.0); MEAN CORPUSCULAR HGB CONC 30.8 g/dL (32.0-36.0); MEAN CORPUSCULAR VOLUME 95.7 fL (79-99); MONOCYTES % (AUTO) 11.5 % (3.0-13.0); NEUTROPHILS % (AUTO) 67.9 % (40.0-77.0); PLATELET COUNT (AUTO) 342 K/uL (130-400); RED BLOOD CELL COUNT(AUTO) 2.78 MIL/uL (4.50-6.20); RED CELL DISTRIBUTION WIDTH 15.6 % (11.0-15.5); WHITE BLOOD COUNT (AUTO) 7.9 K/uL (4.8-10.8)
[2021-04-16 18:04] LABS: CREATININE 4.4 mg/dL (0.5-1.5); POTASSIUM 4.6 mmol/L (3.5-5.1)
[2021-04-16 18:11] LABS: ALBUMIN 2.5 g/dL (3.5-5.0); BILIRUBIN,TOTAL 0.5 mg/dL (0.2-1.0); CRP QUANTITATIVE 73.4 mg/L (0.00-9.0); TOTAL PROTEIN, SERUM 6.1 g/dL (6.0-8.3)
[2021-04-16] MEDS ORDERED: HYDROCODONE/ACETAMINOPHEN 10/325 MG TAB PO ONE (18:30)
[2021-04-16] MEDS ORDERED: CLINDAMYCIN IVPB 600MG/50ML 50 ML IV SCH (18:30)
[2021-04-16] MEDS ORDERED: CEPH500B PO (18:53)
[2021-04-16] MEDS ORDERED: FENTANYL 50 MCG/HR PATCH TD SCH (19:00)
[2021-04-16] MEDS ORDERED: HYDROCODONE/ACETAMINOPHEN 10/325 MG TAB PO SCH (19:30)
[2021-04-16 20:35] VITALS: BP 120/56
== END 2021-04-16 20:38 | disposition home or self-care (01) ==
LOC: EDH 17:01
DX: L03.116 Cellulitis of left lower limb (principal); R50.9 Fever, unspecified; I12.0 Hypertensive chronic kidney disease with stage 5 chronic kidney disease or end stage renal disease; N18.6 End stage renal disease; E11.22 Type 2 diabetes mellitus with diabetic chronic kidney disease; I25.810 Atherosclerosis of coronary artery bypass graft(s) without angina pectoris; E78.00 Pure hypercholesterolemia, unspecified; Z88.8 Allergy status to other drugs, medicaments and biological substances; Z79.4 Long term (current) use of insulin; Z79.82 Long term (current) use of aspirin; Z79.899 Other long term (current) drug therapy; Z95.1 Presence of aortocoronary bypass graft; Z99.2 Dependence on renal dialysis
CPT/HCPCS: 36415; 71045; 80053; 83605; 84484; 85025; 86140; 87040 ×2; 93005; 93971; 96365; 99285; J3490

== ENCOUNTER 2022-01-29 14:13 | Emergency (ER) | payer OTHER ==
[~2022-01-29] VITALS: Ht 162.6 cm; Wt 81.6 kg
[~2022-01-29 14:13] MED LIST changes: +CEPH500B PO
[2022-01-29 14:27] VITALS: BP 164/76
[2022-01-29 14:37] LABS: BASOPHILS % (AUTO) 0.6 % (0.0-5.0); EOSINOPHILS % (AUTO) 6.1 % (0.0-8.0); HEMATOCRIT 29.3 % (42-54); LYMPHOCYTES % (AUTO) 15.5 % (21.0-51.0); MEAN CORPUSCULAR HEMOGLOBIN 32.1 pg (27.0-33.0); MEAN CORPUSCULAR HGB CONC 34.1 g/dL (32.0-36.0); MEAN CORPUSCULAR VOLUME 93.9 fL (79-99); MONOCYTES % (AUTO) 7.3 % (3.0-13.0); NEUTROPHILS % (AUTO) 69.8 % (40.0-77.0); PLATELET COUNT (AUTO) 171 K/uL (130-400); RED BLOOD CELL COUNT(AUTO) 3.12 MIL/uL (4.50-6.20); RED CELL DISTRIBUTION WIDTH 14.3 % (11.0-15.5); WHITE BLOOD COUNT (AUTO) 6.7 K/uL (4.8-10.8)
[2022-01-29] MEDS ORDERED: POTASSIUM BICARB/CIT AC 25 MEQ TABLET.EFF ONE (14:41)
[2022-01-29 14:45] LABS: CREATININE 3.8 mg/dL (0.5-1.5)
[2022-01-29 14:46] LABS: APPEARANCE,URINE SL CLOUDY (CLEAR); BILIRUBIN,URINE NEGATIVE (NEGATIVE); COLOR,URINE YELLOW (YELLOW); GLUCOSE, URINE (UA) 100 mg/dL (NEGATIVE); KETONES,URINE NEGATIVE (NEGATIVE); LEUKOCYTE ESTERASE ,URINE TRACE (NEGATIVE); NITRATE,URINE NEGATIVE (NEGATIVE); OCCULT BLOOD,URINE SMALL (NEGATIVE); PROTEIN,URINE 100 mg/dL (NEGATIVE); UROBILINOGEN,URINE 0.2 mg/dL (0.2-1.0)
[2022-01-29 14:52] LABS: ALBUMIN 3.5 g/dL (3.5-5.0); TOTAL PROTEIN, SERUM 7.1 g/dL (6.0-8.3)
[2022-01-29 15:07] LABS: B-TYPE NATRIURETIC PEPTIDE 447 pg/mL (0-100)
[2022-01-29 15:12] LABS: BACTERIA,URINE Few /HPF (None Seen); SQUAMOUS EPITHELIAL CELL,UR Few /HPF (0-2)
[2022-01-29 15:13] LABS: AMORPHOUS SEDIMENT,UR Few /LPF (None Seen)
[2022-01-29 15:14] LABS: HYALINE CASTS, URINE 0-1 /LPF (0-1 /LPF)
[2022-01-29] MEDS ORDERED: CEPH500B PO (15:23)
[2022-01-29] MEDS ORDERED: CEFTRIAXONE 1G VIAL IVP ONE (15:30)
== END 2022-01-29 15:41 | disposition home or self-care (01) ==
LOC: EDH 14:13
DX: N39.0 Urinary tract infection, site not specified (principal); I12.0 Hypertensive chronic kidney disease with stage 5 chronic kidney disease or end stage renal disease; E11.22 Type 2 diabetes mellitus with diabetic chronic kidney disease; N18.6 End stage renal disease; R53.1 Weakness; Z20.822 Contact with and (suspected) exposure to COVID-19; E78.00 Pure hypercholesterolemia, unspecified; Z99.2 Dependence on renal dialysis; Z79.4 Long term (current) use of insulin; Z79.82 Long term (current) use of aspirin; Z88.8 Allergy status to other drugs, medicaments and biological substances; Z79.899 Other long term (current) drug therapy; Z95.1 Presence of aortocoronary bypass graft
CPT/HCPCS: 99285; 71045; 87635; 84484; 80053; 83880; 85025; 87088; 87804 ×2; 86140; 81001; 36415; 93005; C9803

== ENCOUNTER 2022-02-16 10:51 | Day surgery (SDC) | payer OTHER ==
[2022-02-11 14:35] LABS: BASOPHILS % (AUTO) 0.8 % (0.0-5.0); EOSINOPHILS % (AUTO) 7.5 % (0.0-8.0); HEMATOCRIT 34.2 % (42-54); LYMPHOCYTES % (AUTO) 18.2 % (21.0-51.0); MEAN CORPUSCULAR HEMOGLOBIN 31.9 pg (27.0-33.0); MEAN CORPUSCULAR HGB CONC 32.7 g/dL (32.0-36.0); MEAN CORPUSCULAR VOLUME 97.4 fL (79-99); MONOCYTES % (AUTO) 8.3 % (3.0-13.0); NEUTROPHILS % (AUTO) 64.9 % (40.0-77.0); PLATELET COUNT (AUTO) 204 K/uL (130-400); RED BLOOD CELL COUNT(AUTO) 3.51 MIL/uL (4.50-6.20); RED CELL DISTRIBUTION WIDTH 15.1 % (11.0-15.5)
[2022-02-11 14:48] LABS: INR 1.01 (0.85-1.15)
[2022-02-11 14:49] LABS: PARTIAL THROMBOPLASTIN TIME 25.4 SEC (26.3-35.5)
[2022-02-11 14:59] LABS: CREATININE 6.1 mg/dL (0.5-1.5); POTASSIUM 4.2 mmol/L (3.5-5.1)
[2022-02-15 10:42] VITALS: BP 154/76
[2022-02-16] VITALS (16 sets, daily range): BP systolic 122–177; BP diastolic 62–86
[~2022-02-16] VITALS: Ht 162.6 cm; Wt 89.4 kg
[2022-02-16] MEDS: CEFAZOLIN SODIUM 1 GM VIAL IVP SCH ×2 (05:00→12:20)
[~2022-02-16 10:51] MED LIST changes: -AEC81 PO; +BACITRACIN 28.4 GM OINT TP ONE; +BRIM5DRO4 OD; +CALC667C10 PO; -CEPH500B PO; +CLON0.5T4 PO; +CLOP75TA32 PO; +FERR324T4 PO; +LATA7.5D OU; -LORA-192 PO; +LORA10TA7 PO; +MELA1TAB21 PO; -MELA3TAB41 PO; -METO25 PO; +METO25TA6 PO; +PANT40TA54 PO; +STOOL SOFTNER PO; +SUPER B COMPLEX PO; +VITA200C75 PO; +VITAMIN D PO
[2022-02-16] MEDS ORDERED: 0.9% NACL 500ML IV.SOLN 500 ML IV ONE (11:01)
[2022-02-16] MEDS ORDERED: PROPOFOL 10 MG/ML 20ML VIAL IV ONE (12:20)
[2022-02-16] MEDS ORDERED: GLYCOPYRROLATE 1 MG/5 ML SYRINGE ONE (12:21)
[2022-02-16] MEDS ORDERED: ROCURONIUM 10MG/1ML SYR 10 MG/ML ML ONE (12:21)
[2022-02-16] MEDS ORDERED: FENTANYL CITRATE PF 50 MCG/1 ML 2ML VIAL ONE ×2 (12:21→14:15)
[2022-02-16] MEDS ORDERED: NEOSTIGMINE 5MG/5ML SYR IV ONE (13:49)
[2022-02-16] MEDS ORDERED: ONDANSETRON 4MG INJ ONE (14:15)
== END 2022-02-16 15:30 | disposition home or self-care (01) ==
LOC: DAH 10:51
PROVIDERS: ATTEND Thoracic Surgery (Cardiothoracic Vascular Surgery)
DX: E11.22 Type 2 diabetes mellitus with diabetic chronic kidney disease (principal); N18.6 End stage renal disease; E11.40 Type 2 diabetes mellitus with diabetic neuropathy, unspecified; E78.00 Pure hypercholesterolemia, unspecified; F41.9 Anxiety disorder, unspecified; F32.A Depression, unspecified; I25.10 Atherosclerotic heart disease of native coronary artery without angina pectoris; Z95.1 Presence of aortocoronary bypass graft; Z98.890 Other specified postprocedural states; Z86.73 Personal history of transient ischemic attack (TIA), and cerebral infarction without residual deficits; Z99.2 Dependence on renal dialysis; Z79.01 Long term (current) use of anticoagulants; Z79.899 Other long term (current) drug therapy
CPT/HCPCS: 80048; 85025; 85610; 85730; 86850 ×2; 86900 ×2; 86901 ×2; 87426; 36415 ×2; 71045; 93005; 36821; 84132; 82948; A6260; A4663; J7040 ×2; J7030; J3010 ×2; J0690; J3490; J2710; J2704; J2405; J1644; A6219; G0168; A4649 ×3; C1713 ×2; A4930; A4215; A4223; A4222; A4221

== ENCOUNTER 2022-04-15 08:57 | Emergency (ER) | payer OTHER ==
[~2022-04-15] VITALS: Ht 162.6 cm; Wt 88.9 kg
[~2022-04-15 08:57] MED LIST changes: -BACITRACIN 28.4 GM OINT TP ONE
[2022-04-15] MEDS ORDERED: CIPR-278 PO (10:25)
[2022-04-15] MEDS ORDERED: IBUP-1493 PO (10:28)
[2022-04-15 10:31] VITALS: BP 163/83
[2022-04-15 10:43] LABS: APPEARANCE,URINE CLOUDY (CLEAR); BACTERIA,URINE RARE /HPF (None Seen); BILIRUBIN,URINE 0.5 mg/dL (NEGATIVE); COLOR,URINE YELLOW (YELLOW); GLUCOSE, URINE (UA) 70 mg/dL (NEGATIVE); KETONES,URINE NEGATIVE (NEGATIVE); LEUKOCYTE ESTERASE ,URINE 250 Leu/uL (NEGATIVE); NITRATE,URINE NEGATIVE (NEGATIVE); OCCULT BLOOD,URINE SMALL (NEGATIVE); PH,URINE 5.5 (5.0-8.0); PROTEIN,URINE 600 mg/dL (NEGATIVE); UROBILINOGEN,URINE 0.2 mg/dL (0.2-1.0); WBC,URINE 26-50 /HPF (0-1)
== END 2022-04-15 10:41 | disposition home or self-care (01) ==
LOC: EDH 08:57
DX: N45.1 Epididymitis (principal); E78.00 Pure hypercholesterolemia, unspecified; I12.0 Hypertensive chronic kidney disease with stage 5 chronic kidney disease or end stage renal disease; E11.22 Type 2 diabetes mellitus with diabetic chronic kidney disease; N18.6 End stage renal disease; Z99.2 Dependence on renal dialysis; Z98.890 Other specified postprocedural states; Z88.8 Allergy status to other drugs, medicaments and biological substances; Z79.899 Other long term (current) drug therapy; Z79.4 Long term (current) use of insulin
CPT/HCPCS: 76870; 81001; 87077; 87088; 87186

== ENCOUNTER 2022-04-17 01:14 | Emergency (ER) | payer OTHER ==
[~2022-04-17] VITALS: Ht 162.6 cm; Wt 77.6 kg
[~2022-04-17 01:14] MED LIST changes: +CIPR-278 PO; +IBUP-1493 PO
[2022-04-17 02:02] LABS: BASOPHILS % (AUTO) 0.8 % (0.0-5.0); EOSINOPHILS % (AUTO) 6.3 % (0.0-8.0); HEMATOCRIT 38.4 % (42-54); MEAN CORPUSCULAR HEMOGLOBIN 30.9 pg (27.0-33.0); MEAN CORPUSCULAR HGB CONC 32.6 g/dL (32.0-36.0); MONOCYTES % (AUTO) 11.1 % (3.0-13.0); NEUTROPHILS % (AUTO) 67.5 % (40.0-77.0); PLATELET COUNT (AUTO) 214 K/uL (130-400); RED BLOOD CELL COUNT(AUTO) 4.04 MIL/uL (4.50-6.20); RED CELL DISTRIBUTION WIDTH 15.6 % (11.0-15.5); WHITE BLOOD COUNT (AUTO) 7.7 K/uL (4.8-10.8)
[2022-04-17 02:08] LABS: APPEARANCE,URINE CLOUDY (CLEAR); BACTERIA,URINE RARE /HPF (None Seen); BILIRUBIN,URINE 0.5 mg/dL (NEGATIVE); COLOR,URINE YELLOW (YELLOW); GLUCOSE, URINE (UA) 70 mg/dL (NEGATIVE); KETONES,URINE NEGATIVE (NEGATIVE); LEUKOCYTE ESTERASE ,URINE 500 Leu/uL (NEGATIVE); MUCUS,URINE RARE LPF (None Seen); NITRATE,URINE NEGATIVE (NEGATIVE); OCCULT BLOOD,URINE SMALL (NEGATIVE); PROTEIN,URINE 600 mg/dL (NEGATIVE); WBC,URINE 51-100 /HPF (0-1)
[2022-04-17 02:17] LABS: CREATININE 5.3 mg/dL (0.5-1.5); POTASSIUM 4.6 mmol/L (3.5-5.1)
[2022-04-17 02:21] LABS: ALBUMIN 3.8 g/dL (3.5-5.0); TOTAL PROTEIN, SERUM 7.4 g/dL (6.0-8.3)
[2022-04-17] MEDS ORDERED: ONDANSETRON ODT 4MG TAB SL STA (03:34)
[2022-04-17 05:53] VITALS: BP 139/71
== END 2022-04-17 05:59 | disposition home or self-care (01) ==
LOC: EDH 01:14
DX: I12.0 Hypertensive chronic kidney disease with stage 5 chronic kidney disease or end stage renal disease (principal); E11.22 Type 2 diabetes mellitus with diabetic chronic kidney disease; R11.2 Nausea with vomiting, unspecified; N18.6 End stage renal disease; E78.00 Pure hypercholesterolemia, unspecified; F32.A Depression, unspecified; F41.9 Anxiety disorder, unspecified; Z79.1 Long term (current) use of non-steroidal anti-inflammatories (NSAID); Z88.8 Allergy status to other drugs, medicaments and biological substances; Z79.4 Long term (current) use of insulin; Z95.1 Presence of aortocoronary bypass graft; Z99.2 Dependence on renal dialysis
CPT/HCPCS: 36415; 71045; 80053; 81001; 83690; 84484; 85025; 93005

== ENCOUNTER 2022-05-07 14:29 | Emergency (ER) | payer OTHER ==
[~2022-05-07] VITALS: Ht 162.6 cm; Wt 86.2 kg
[2022-05-07 15:10] VITALS: BP 143/71
[2022-05-07 16:14] LABS: BASOPHILS % (AUTO) 0.5 % (0.0-5.0); EOSINOPHILS % (AUTO) 3.9 % (0.0-8.0); HEMATOCRIT 39.3 % (42-54); LYMPHOCYTES % (AUTO) 6.4 % (21.0-51.0); MEAN CORPUSCULAR HEMOGLOBIN 30.4 pg (27.0-33.0); MEAN CORPUSCULAR HGB CONC 31.8 g/dL (32.0-36.0); MEAN CORPUSCULAR VOLUME 95.6 fL (79-99); MONOCYTES % (AUTO) 7.4 % (3.0-13.0); NEUTROPHILS % (AUTO) 81.1 % (40.0-77.0); PLATELET COUNT (AUTO) 190 K/uL (130-400); RED BLOOD CELL COUNT(AUTO) 4.11 MIL/uL (4.50-6.20); RED CELL DISTRIBUTION WIDTH 14.7 % (11.0-15.5); WHITE BLOOD COUNT (AUTO) 11.3 K/uL (4.8-10.8)
[2022-05-07 16:26] LABS: CREATININE 4.4 mg/dL (0.5-1.5); POTASSIUM 4.2 mmol/L (3.5-5.1)
[2022-05-07 16:31] LABS: ALBUMIN 4.4 g/dL (3.5-5.0); TOTAL PROTEIN, SERUM 8.6 g/dL (6.0-8.3)
[2022-05-07] MEDS ORDERED: BENZ-39 PO (16:50)
== END 2022-05-07 16:57 | disposition home or self-care (01) ==
LOC: EDH 14:29
DX: J06.9 Acute upper respiratory infection, unspecified (principal); R05.1 Acute cough; Z20.822 Contact with and (suspected) exposure to COVID-19; F41.9 Anxiety disorder, unspecified; F32.A Depression, unspecified; E11.40 Type 2 diabetes mellitus with diabetic neuropathy, unspecified; E78.00 Pure hypercholesterolemia, unspecified; I10 Essential (primary) hypertension; Z98.890 Other specified postprocedural states; Z88.8 Allergy status to other drugs, medicaments and biological substances; Z79.899 Other long term (current) drug therapy; Z79.4 Long term (current) use of insulin
CPT/HCPCS: 99285; 71046; 87635; 80053; 85025; 87880; 87804 ×2; 36415; 93005; C9803

== ENCOUNTER 2022-05-08 00:41 | Emergency (ER) | payer OTHER ==
[~2022-05-08] VITALS: Ht 162.6 cm; Wt 86.2 kg
[~2022-05-08 00:41] MED LIST changes: +BENZ-39 PO
[2022-05-08 01:54] LABS: BASOPHILS % (AUTO) 0.6 % (0.0-5.0); HEMATOCRIT 30.8 % (42-54); LYMPHOCYTES % (AUTO) 7.2 % (21.0-51.0); MEAN CORPUSCULAR HEMOGLOBIN 30.5 pg (27.0-33.0); MEAN CORPUSCULAR HGB CONC 31.5 g/dL (32.0-36.0); MEAN CORPUSCULAR VOLUME 96.9 fL (79-99); MONOCYTES % (AUTO) 9.4 % (3.0-13.0); NEUTROPHILS % (AUTO) 78.2 % (40.0-77.0); PLATELET COUNT (AUTO) 149 K/uL (130-400); RED BLOOD CELL COUNT(AUTO) 3.18 MIL/uL (4.50-6.20); RED CELL DISTRIBUTION WIDTH 14.7 % (11.0-15.5); WHITE BLOOD COUNT (AUTO) 10.5 K/uL (4.8-10.8)
[2022-05-08 02:06] LABS: CREATININE 5.7 mg/dL (0.5-1.5); POTASSIUM 4.7 mmol/L (3.5-5.1)
[2022-05-08 02:11] LABS: ALBUMIN 3.5 g/dL (3.5-5.0)
[2022-05-08] MEDS ORDERED: ACETAMINOPHEN 500 MG TABLET ONE (02:23)
[2022-05-08] MEDS ORDERED: ACETAMINOPHEN 500 MG TABLET PO ONE (02:30)
[2022-05-08 07:41] VITALS: BP 124/59
== END 2022-05-08 08:34 | disposition home or self-care (01) ==
LOC: EDH 00:41
DX: B34.9 Viral infection, unspecified (principal); R50.9 Fever, unspecified; N28.9 Disorder of kidney and ureter, unspecified; E78.00 Pure hypercholesterolemia, unspecified; E11.40 Type 2 diabetes mellitus with diabetic neuropathy, unspecified; Z88.8 Allergy status to other drugs, medicaments and biological substances; Z79.899 Other long term (current) drug therapy; Z79.4 Long term (current) use of insulin; Z98.890 Other specified postprocedural states
CPT/HCPCS: 36415; 80053; 83605; 84484; 85025; 87040; 93005

== ENCOUNTER 2022-08-20 16:15 | Emergency (ER) | payer OTHER ==
[~2022-08-20] VITALS: Ht 162.6 cm; Wt 86.2 kg
[~2022-08-20 16:15] MED LIST changes: -MELA1TAB21 PO; +MELA1TAB73 PO
[2022-08-20 16:53] VITALS: BP 126/58
[2022-08-20 17:03] LABS: BASOPHILS % (AUTO) 0.4 % (0.0-5.0); EOSINOPHILS % (AUTO) 4.2 % (0.0-8.0); HEMATOCRIT 28.9 % (42-54); LYMPHOCYTES % (AUTO) 10.8 % (21.0-51.0); MEAN CORPUSCULAR HEMOGLOBIN 31.2 pg (27.0-33.0); MEAN CORPUSCULAR HGB CONC 33.2 g/dL (32.0-36.0); MEAN CORPUSCULAR VOLUME 93.8 fL (79-99); NEUTROPHILS % (AUTO) 75.2 % (40.0-77.0); PLATELET COUNT (AUTO) 194 K/uL (130-400); RED BLOOD CELL COUNT(AUTO) 3.08 MIL/uL (4.50-6.20); RED CELL DISTRIBUTION WIDTH 14.5 % (11.0-15.5); WHITE BLOOD COUNT (AUTO) 6.7 K/uL (4.8-10.8)
[2022-08-20 17:07] LABS: CREATININE 3.8 mg/dL (0.5-1.5); POTASSIUM 3.8 mmol/L (3.5-5.1)
[2022-08-20 17:12] LABS: ALBUMIN 3.4 g/dL (3.5-5.0); TOTAL PROTEIN, SERUM 7.1 g/dL (6.0-8.3)
[2022-08-20] MEDS ORDERED: ACETAMINOPHEN 500 MG TABLET PO ONE (17:30)
== END 2022-08-20 18:50 | disposition home or self-care (01) ==
LOC: EDH 16:15
DX: J32.9 Chronic sinusitis, unspecified (principal); I12.9 Hypertensive chronic kidney disease with stage 1 through stage 4 chronic kidney disease, or unspecified chronic kidney disease; E11.22 Type 2 diabetes mellitus with diabetic chronic kidney disease; N18.9 Chronic kidney disease, unspecified; E78.00 Pure hypercholesterolemia, unspecified; Z20.822 Contact with and (suspected) exposure to COVID-19; Z88.8 Allergy status to other drugs, medicaments and biological substances; Z79.899 Other long term (current) drug therapy
CPT/HCPCS: 99285; 71045; 87635; 80053; 85025; 87804 ×2; 36415; 93005; C9803

== ENCOUNTER 2022-10-06 16:25 | Observation (INO) | payer OTHER ==
[~2022-10-06] VITALS: Ht 162.6 cm; Wt 87.9 kg
[~2022-10-06 16:25] MED LIST changes: -BRIM5DRO4 OD; +BRIM5DRO5 OD
[2022-10-06 17:36] LABS: BASOPHILS % (AUTO) 0.4 % (0.0-5.0); EOSINOPHILS % (AUTO) 2.8 % (0.0-8.0); HEMATOCRIT 35.4 % (42-54); LYMPHOCYTES % (AUTO) 11.8 % (21.0-51.0); MEAN CORPUSCULAR HGB CONC 32.8 g/dL (32.0-36.0); MEAN CORPUSCULAR VOLUME 97.5 fL (79-99); MONOCYTES % (AUTO) 10.1 % (3.0-13.0); NEUTROPHILS % (AUTO) 74.7 % (40.0-77.0); PLATELET COUNT (AUTO) 184 K/uL (130-400); RED BLOOD CELL COUNT(AUTO) 3.63 MIL/uL (4.50-6.20); RED CELL DISTRIBUTION WIDTH 15.6 % (11.0-15.5); WHITE BLOOD COUNT (AUTO) 5.4 K/uL (4.8-10.8)
[2022-10-06 17:50] LABS: PROTHROMBIN TIME 10.9 SEC (9.6-11.6)
[2022-10-06 18:08] LABS: POTASSIUM 3.7 mmol/L (3.5-5.1)
[2022-10-06 18:13] LABS: ALBUMIN 3.4 g/dL (3.5-5.0); TOTAL PROTEIN, SERUM 6.9 g/dL (6.0-8.3)
[2022-10-06 18:21] LABS: PARTIAL THROMBOPLASTIN TIME 29.3 SEC (26.3-35.5)
[2022-10-06 18:26] LABS: APPEARANCE,URINE CLOUDY (CLEAR); BILIRUBIN,URINE NEGATIVE (NEGATIVE); COLOR,URINE YELLOW (YELLOW); GLUCOSE, URINE (UA) TRACE mg/dL (NEGATIVE); KETONES,URINE NEGATIVE (NEGATIVE); LEUKOCYTE ESTERASE ,URINE 75 Leu/uL (NEGATIVE); NITRATE,URINE NEGATIVE (NEGATIVE); OCCULT BLOOD,URINE SMALL (NEGATIVE); PROTEIN,URINE 300 mg/dL (NEGATIVE); UROBILINOGEN,URINE 0.2 mg/dL (0.2-1.0)
[2022-10-06 18:34] LABS: BACTERIA,URINE MOD /HPF (None Seen); MUCUS,URINE FEW LPF (None Seen); SQUAMOUS EPITHELIAL CELL,UR FEW /HPF (0-2)
[2022-10-06] MEDS ORDERED: ZOSYN 3.375GM +NS 50ML IVPB ONE (19:30)
[2022-10-06] MEDS ORDERED: 0.9%NACL 100ML IVPB ONE (19:30)
[2022-10-06] MEDS ORDERED: VANCOMYCIN 500MG VIAL IVPB ONE (19:30)
[2022-10-06] MEDS ORDERED: VANCOMYCIN 500MG+NS 100ML 100 ML IV ONE (19:46)
[2022-10-06] MEDS ORDERED: IOHEXOL 350 MG/ML 100ML INFUS..BTL IV ONE (20:05)
[2022-10-07 00:50] VITALS: BP 156/69
[2022-10-07 04:00] VITALS: BP 133/82
[2022-10-07 05:11] LABS: BASOPHILS % (AUTO) 0.5 % (0.0-5.0); EOSINOPHILS % (AUTO) 3.8 % (0.0-8.0); HEMATOCRIT 34.7 % (42-54); LYMPHOCYTES % (AUTO) 15.1 % (21.0-51.0); MEAN CORPUSCULAR HEMOGLOBIN 31.5 pg (27.0-33.0); MEAN CORPUSCULAR HGB CONC 32.3 g/dL (32.0-36.0); MEAN CORPUSCULAR VOLUME 97.7 fL (79-99); MONOCYTES % (AUTO) 11.3 % (3.0-13.0); NEUTROPHILS % (AUTO) 68.9 % (40.0-77.0); PLATELET COUNT (AUTO) 180 K/uL (130-400); RED BLOOD CELL COUNT(AUTO) 3.55 MIL/uL (4.50-6.20); RED CELL DISTRIBUTION WIDTH 15.3 % (11.0-15.5); WHITE BLOOD COUNT (AUTO) 5.5 K/uL (4.8-10.8)
[2022-10-07 05:23] LABS: TOTAL PROTEIN, SERUM 6.5 g/dL (6.0-8.3)
[2022-10-07] MEDS ORDERED: ACETAMINOPHEN WITH CODEINE 1 TAB TAB PO PRN (08:30)
[2022-10-07] MEDS ORDERED: FUROSEMIDE 40MG VIAL IV SCH (09:00)
== END 2022-10-07 10:15 | disposition home or self-care (01) ==
LOC: EDH 16:25 → INTOOBSV 22:57 → EDHIP 22:57 → 4AH 10-07 00:50
PROVIDERS: ADMIT Internal Medicine; ATTEND Internal Medicine
DX: G93.40 Encephalopathy, unspecified (principal); I25.10 Atherosclerotic heart disease of native coronary artery without angina pectoris; E78.00 Pure hypercholesterolemia, unspecified; Z95.1 Presence of aortocoronary bypass graft; I12.0 Hypertensive chronic kidney disease with stage 5 chronic kidney disease or end stage renal disease; N18.6 End stage renal disease; E11.22 Type 2 diabetes mellitus with diabetic chronic kidney disease; Z79.899 Other long term (current) drug therapy; Z98.890 Other specified postprocedural states; Z99.2 Dependence on renal dialysis
CPT/HCPCS: 96365; 96366 ×2; 96368; 99285; 82550; 84484; 80053 ×2; 85025 ×2; 85610; 85730; 87040 ×2; 87088; 83605; 81001; 36415 ×2; 72129; 72132; 96375; 82948; 93005; G0378 ×11; J2543; J3370 ×2; Q9967; J1940; 96367

== ENCOUNTER 2025-01-29 07:17 | Day surgery (SDC) | payer OTHER ==
[2025-01-25 11:41] VITALS: BP 157/68; PULSE 58; RESP 16; TEMP 97.5
[2025-01-25 11:48] LABS: IMMATURE GRANULOCYTE ABSOLUTE 0.01 K/uL (0-1); NUCLEATED RED BLOOD CELLS 0.0 % (0.0-0.19); PLATELET COUNT (AUTO) 169 K/uL (130-400); RED BLOOD CELL COUNT(AUTO) 3.67 MIL/uL (4.50-6.20); RED CELL DISTRIBUTION WIDTH 14.1 % (11.0-15.5); WHITE BLOOD COUNT (AUTO) 5.0 K/uL (4.8-10.8)
[2025-01-25 11:49] LABS: APPEARANCE,URINE CLEAR (CLEAR); GLUCOSE, URINE (UA) 70 mg/dL (NEGATIVE); LEUKOCYTE ESTERASE ,URINE 75 Leu/uL (NEGATIVE); NITRATE,URINE NEGATIVE (NEGATIVE); OCCULT BLOOD,URINE NEGATIVE (NEGATIVE)
[2025-01-25 11:58] LABS: CREATININE 4.6 mg/dL (0.5-1.3); GLOMERULAR FILTR. RATE CALC 14.0 mL/min (>90); GLUCOSE,RANDOM 140.0 mg/dL (70-105); SODIUM SERUM 139.0 mmol/L (136-145); UREA NITROGEN, BLOOD 22.0 mg/dL (7-18)
[2025-01-25 12:01] LABS: INR 1.11 (0.85-1.15)
[2025-01-25 12:07] LABS: ADD UA MICROSCOPIC YES
[2025-01-25 12:12] LABS: SQUAMOUS EPITHELIAL CELL,UR RARE /HPF (0-2)
--- NOTE | 2025-01-25 13:09 | HMCIMG ---
CHEST 1VW REASON: PRE OP COMPARISON: Prior study from 08/20/2022 is available. FINDINGS: Single view of the chest was obtained. Lungs are clear. There is cardiomegaly with left ventricular contour with median sternotomy with cardiac revascularization procedure. There is no pulmonary vascular congestion. Mediastinum and bony thorax appear unremarkable. IMPRESSION: 1 stable cardiomegaly with median sternotomy with cardiac revascularization procedure..
--- NOTE | 2025-01-25 13:30 | NUR ---
REPORTED ABNORMAL LABS (BNP, UA) TO MAGALY YOON GRIEVANCE MANAGER WITH DR. GARCIA. STATES OK TO PROCEED. RECEIVED ORDER FOR ROCEPHIN 1 GM IV PRIOR TO PROCEDURE.
--- NOTE | 2025-01-26 12:45 | EKG ---
[facility] Test Date: 2025-01-25 Test Time: 11:33:03 Pat Name: ERNESTO ISSA Department[facility] Room: Gender: M Abe Teacher: [id number] : 1965 Requested By: Eli GARCIA Order Number: [id number] Reading MD: Nia Curry Measurements Intervals [place] Rate: 58 P: 44 UT: 246 QRS: 51 QRSD: 101 T: 114 QT: 496 QTc: 486 Interpretive Statements Sinus rhythm Prolonged UT interval Abnormal T, consider ischemia, lateral leads Compared to ECG 10/06/2022 17:05:56 First degree AV block now present T-wave abnormality now present Possible ischemia now present Electronically Signed On 01-28-2025 15:06:38 CDT by Nia Curry Please click the below link to view image of tracing.
[~2025-01-29] VITALS: Ht 162.6 cm; Wt 91.2 kg
[2025-01-29] VITALS (10 sets, daily range): BP systolic 120–142; BP diastolic 50–70; PULSE 52–59; RESP 10–17; TEMP 97.6
[~2025-01-29 07:17] MED LIST changes: +AMLO-258 PO; -ATOR40TA69 PO; +ATOR40TA71 PO; -BENZ-39 PO; -BRIM5DRO5 OD; +BUSP10TA3 PO; -CALC667C10 PO; -CIPR-278 PO; -CITA-107 PO; +CITA20TA17 PO; -CLON0.5T4 PO; +FAMO20TA8 PO; -FERR324T4 PO; +HYDR50TA37 PO; -IBUP-1493 PO; -INSU100I35 SQ; -LATA7.5D OU; -MELA1TAB73 PO; +NPH,100V SQ; -PANT40TA54 PO; -STOOL SOFTNER PO; -SUPER B COMPLEX PO; +TORS100T16 PO; +VITA1CAP8 PO; -VITA200C75 PO; -VITAMIN D PO; +[UNRECOGNIZED DRUG - CODE] PO
[2025-01-29] MEDS: 0.9% NACL 500ML IV.SOLN 500 ML IV SCH (07:31)
[2025-01-29] MEDS ORDERED: IOHEXOL 350 MG/ML 100ML INFUS..BTL IV ONE (09:34)
[2025-01-29] MEDS ORDERED: NITROGLYCERIN 50MG VIAL ONE (09:35)
[2025-01-29] MEDS ORDERED: HEParin-NS 1,000 UNIT/500 ML 1,000 ML IV ONE (09:35)
[2025-01-29] MEDS ORDERED: LIDOCAINE HCL 400MG/20ML VIAL ONE (09:35)
[2025-01-29] MEDS ORDERED: MIDAZOLAM HCL 1 MG/ML 2ML VIAL ONE ×3 (10:05→11:27)
[2025-01-29] MEDS ORDERED: IOHEXOL-350 75 ML VIAL IV ONE (11:41)
[2025-01-29] MEDS ORDERED: ASPIRIN 81MG CHEW TAB ONE (11:59)
[2025-01-29] MEDS ORDERED: 0.9%NACL 10ML VIAL IV SCH (12:00)
[2025-01-29] MEDS ORDERED: ASPI-1443 PO (13:23)
--- NOTE | 2025-01-29 13:36 | CCATH ---
PROCEDURE NOTE PROCEDURES: * Left heart cath. * Selective right and left coronary arteriogram. * Multiple saphenous vein graft angiogram. * VELA angiogram. * Balloon angioplasty and stenting of the PDA. * Balloon angioplasty and stenting of the distal RCA. * Balloon angioplasty and stenting of the proximal to ostial RCA. * Conscious sedation for 90 minutes. INDICATIONS: * Recurrent angina. * Abnormal Lexiscan Cardiolite. * Known history of coronary artery disease with remote coronary artery bypass graft surgery x 4. * Evaluation for preoperative management with abnormal Lexiscan and recurrent angina. DESCRIPTION OF PROCEDURE: The patient was seen in the cardiac catheterization lab after appropriate operative consents were signed. He was prepped and draped in the usual fashion. After conscious sedation was administered, the right common femoral artery was accessed utilizing ultrasound guidance. The patient had fairly difficult introduction, which would not allow the sheath to advance given his body type. At this point, we elected to utilize an Amplatz super stiff wire, which was advanced under fluoroscopic guidance. This allowed us to advance the 6-Mongolian sheath. Angiography at the time revealed no evidence of extravasation and no problems with proper sheath placement. At this point, an FL4 6-Mongolian catheter was advanced over an indwelling wire. This was selected against the ostium of the left main. Imaging was obtained in multiplane. The left main coronary artery was a moderately sized vessel. It was calcified and diffusely diseased in the 40-50% range. It bifurcated into an LAD and a circumflex. The LAD was a moderately sized vessel that had an 80% lesion in its proximal portion and gave rise to several septal perforators and two main diagonals. Both diagonals had ostial 80% stenotic lesions. The LAD had evidence of competitive flow from mammary artery. The first diagonal had evidence of competitive flow from a saphenous vein graft. Circumflex coronary artery was a moderately sized vessel that was calcified and had significant tortuosity in its proximal portion. It had an 80% lesion at the bifurcation of the first obtuse marginal and the ongoing circ. The ongoing circ was fairly small and the territory was not of hemodynamic significance. The first obtuse marginal was severely stenotic at 80% and also had competitive flow via vein graft. At this point, the catheter was withdrawn, FR4 6-Mongolian catheter was advanced and placed in the left ventricular cavity. Left ventricular end-diastolic pressure measurement was obtained. This was markedly elevated measuring 28. Elected not to perform ventriculography given the normal LV systolic function by angiography and the patient's chronic renal failure status. Pullback revealed no aortic stenosis. At this point, the right coronary catheter was engaged in the ostium of the right coronary artery. The catheter dampening ensued immediately. The right coronary artery was imaged in multiplane. This was a large vessel that was calcified and had an ostial 70% tubular long lesion. There was a distal 90% lesion after the first acute marginal. The distal RCA bifurcated into a PDA and a branching PLVB. The PDA had tandem 90% lesions in the mid segment with evidence of graft remnant being filled in a retrograde fashion. At this point, the catheter was engaged in the saphenous vein graft to the RCA, which was 100% occluded proximally. It was engaged in the saphenous vein graft to the OM, which was a large graft that was patent with good flow, supplying a moderately sized distal OM. The catheter was then engaged in the saphenous vein graft to the diagonal, which was moderately sized graft with good flow supplying a moderately sized diagonal. At this point, an IMT was utilized and engaged in the left internal mammary artery. This revealed a patent left internal mammary artery, which was imaged in multiplane, supplying moderately sized distal LAD with good flow. Given the patient's symptoms and his abnormal Lexiscan Cardiolite, I elected to proceed with a percutaneous intervention. The patient's right coronary artery lesions were hemodynamically significant. At this point, we elected to utilize right coronary 6-Mongolian guide with side holes. This was engaged in the ostium of the right coronary artery. Despite the side holes, we still had catheter dampening of significance. At this point, a 0.014 wire was advanced and placed in the distal PDA. We proceeded with placement of a 3.0 x 20 NC balloon in the distal RCA, which was inflated to nominal pressures. I elected to proceed with angioplasty and stent placement in the PDA. Unfortunately, the stent would not traverse the proximal portion of the RCA given the calcification and angulation. Because of that, I elected to utilize a GuideLiner, which was advanced over an indwelling wire. This was then advanced to the mid RCA, which allowed us to advance a stent to the PDA. We elected to utilize a 2.25 x 28 Xience stent, which was inflated to nominal pressures in the PDA with good angiographic results. The next segment to be addressed was the distal RCA, which was managed with placement of a 3.0 x 23 stent, which was inflated to 16 atmospheres at 3.13 mm in size with good angiographic results. The ostial to proximal RCA was then managed with placement of a 3.0 x 38 Xience stent, which was inflated to 16 atmospheres and post dilated with an NC 3.0 balloon to 20 atmospheres at 3.13 mm size with good final angiographic results. At this point, the procedure was completed, the patient tolerated well and left the cardiac catheterization lab in stable condition. The Vascade was utilized with good hemostasis. FINAL IMPRESSION: * Severe three-vessel coronary artery disease. * Recurrent angina with abnormal Lexiscan Cardiolite. * Patent 3 of 4 grafts, VELA to the LAD, saphenous vein graft to the diagonal, and saphenous vein graft to the OM with an occluded saphenous vein graft to the RCA. * Elevated left ventricular end-diastolic pressure with no aortic stenosis. * Preserved LV systolic function by noninvasive measures. * Successful complex balloon angioplasty and stent placement of the PDA, distal RCA, and ostial RCA with a 2.25 x 28 Xience stent in the PDA, 3.0 x 23 stent in the distal RCA, and 3.0 x 38 Xience stent in the ostial to proximal RCA with good angiographic results. PLAN: Continue medical management. TID: [id number] RECEIPT: [id number]
--- NOTE | 2025-01-29 14:01 | NUR ---
Right Femoral site without sign of bleeding bruising or hematoma. Educated on removal protocol and expectations with Femoral site dressing clean dry and intact. No sign of bleeding, bruising or hematoma. Pedal pulses intact to BLES. Reported off in full to Chon KRISHNAMURTHY.
--- NOTE | 2025-01-29 17:50 | NUR ---
BOTH PT AND SPOUSE GIVEN VERBAL AND WRITTEN DISCHARGE INSTRUCTIONS IV REMOVED SITE ASYMPTOMATIC. PT TAKEN OUT VIA WHEELCHAIR. SPOUSE DRIVING.
[2025-01-31] MEDS ORDERED: MELA10CA11 PO (05:48)
[2025-02-01] MEDS ORDERED: [UNRECOGNIZED DRUG - CODE] PO (19:46)
[2025-02-03] MEDS ORDERED: DOCU100T PO (21:35)
[2025-02-03] MEDS ORDERED: SENN-120 PO (21:35)
== END 2025-01-29 18:10 | disposition home or self-care (01) ==
LOC: DAH 07:17
PROVIDERS: ATTEND Internal Medicine Cardiovascular Disease
DX: R94.39 Abnormal result of other cardiovascular function study (principal); I25.118 Atherosclerotic heart disease of native coronary artery with other forms of angina pectoris; I13.2 Hypertensive heart and chronic kidney disease with heart failure and with stage 5 chronic kidney disease, or end stage renal disease; I50.22 Chronic systolic (congestive) heart failure; E78.5 Hyperlipidemia, unspecified; E66.01 Morbid (severe) obesity due to excess calories; E11.40 Type 2 diabetes mellitus with diabetic neuropathy, unspecified; R94.31 Abnormal electrocardiogram [ECG] [EKG]; E11.51 Type 2 diabetes mellitus with diabetic peripheral angiopathy without gangrene; E11.22 Type 2 diabetes mellitus with diabetic chronic kidney disease; N18.6 End stage renal disease; Z99.2 Dependence on renal dialysis; Z95.1 Presence of aortocoronary bypass graft; Z79.4 Long term (current) use of insulin; Z86.73 Personal history of transient ischemic attack (TIA), and cerebral infarction without residual deficits; Z68.34 Body mass index [BMI] 34.0-34.9, adult; Z79.899 Other long term (current) drug therapy
CPT/HCPCS: 80048; 83880; 85025; 85610; 85730; 87086; 81001; 36415; 71045; 93005; 93459; 99156; 99157 ×5; 85347 ×3; 82948; C9600; C1887 ×3; C1769 ×2; C1894 ×2; C1725; C1760; Q9965 ×2; C1874 ×3; J7040; J3010 ×2; J3490 ×2; J0696; J1644 ×3; J2250 ×3; Q9967; A4215; A4657; A4222; A4221; A4663; A4216; A4606; C9601; A4223 ×3